=== PATIENT | female | born 1940 | race Caucasian/White ===

== ENCOUNTER → 2017-03-06 | Outpatient (CLI) | payer MEDICARE, OTHER ==
[~2017-03-06] MED LIST: REGADENOSON 0.4 MG/5 ML DISP.SYRIN. IV ONE
--- NOTE | 2017-03-06 15:54 | PCVCIMAG ---
APPROVED REPORT Exam: Nuclear Stress Test Indication: Dyspnea , Chest pain Patient Location: Out-Patient Stress Nurse: Emperatriz Malone RN, Leila Koch RN [place] Tech:Ada AdhikarihbunGEORGINAMT Ht: 5 ft 2 in Wt: 161 lbs BSA: 1.74 m2 HR: 61 bpm BP: 135/76 mmHg BMI: 29.4 Rhythm: Sinus Rhythm, RBBB Medical History Medical History: Smoking - Former Medications: Amlodipine, Lisinopril, Omeprazole, Simvastatin, HCTZ Allergies: No known drug allergies Cardiac Risk Factors: Age Pretest Chest Pain Characteristics: No chest pain Exercise History: Physically active NM EXAM: Myocardial Perfusion REST/STRESS Imaging Protocol: Rest Tc-99m/Stress Tc-99m 1 day Resting Data Rest SPECT myocardial perfusion imaging was performed in supine position 45 minutes following the intravenous injection of 10.5 mCi of Tc-99m Sestamibi. Time of rest injection: 0800 Date: 03/06/2017 Pharmacologic Stress Pharmacologic stress test was performed by injecting Regadenoson 0.4 mg IV push followed by the intravenous injection of 34.7 mCi of Tc-99m Sestamibi. Time of stress injection: 0900 Date: 03/06/2017 Gated Stress SPECT was performed 45 minutes after stress injection. The images were gated to evaluate regional wall motion and calculate left ventricular ejection fraction. Exercise Stress Administration Site: Left Hand Comments IV Dc'd by [facility] Study Quality Study: Good Study Data Post stress, the left ventricular ejection was 72%.. SSS: 0 SRS: 4 SDS: 0 TID = 1.17. Perfusion No evidence of stress induced ischemia or prior myocardial infarction. Wall Motion Normal left ventricular size and function with no regional wall motion abnormalities. Nuclear Conclusion No evidence of stress induced ischemia or prior myocardial infarction. Normal left ventricular size and function with no regional wall motion abnormalities. No prior study available for comparison. Interpreted by: Martin Moore MD Electronically Approved: 03/06/2017 15:23:59 Stress Test Details Stress Test: Pharmacologic stress was paired with low level exercise. Reason for pharmacologic stress test: physical limitation. HR Resting HR: 61 bpmMax Heart Rate (APMHR): 146 bpm Max HR Achieved: 96 bpmTarget HR (85% APMHR): 124 bpm % of APMHR: 65 Recovery HR: 78 bpm BP Resting BP: 135/76 mmHg Max BP: 152/70 mmHg Recovery BP: 161/73 mmHg ECG Resting ECG: Sinus Rhythm, RBBB Stress ECG: Sinus Rhythm, Paced Recovery ECG: Sinus Rhythm, NSSTT changes Clinical Reason for Termination: Completed protocol Stress Symptoms: Dyspnea, Headache Exercise duration: 4 min 00 sec Exercise capacity: 1.6 METs Symptoms resolved during recovery with caffeine. Stress ECG Conclusion ECG: Non-ischemic <Conclusion> ECG: Non-ischemic
== END | disposition home or self-care (01) ==
LOC: PCVCIMAG 07:55
PROVIDERS: ATTEND Nuclear Medicine Nuclear Cardiology
DX: I45.10 Unspecified right bundle-branch block (principal); R51 Headache; Z87.891 Personal history of nicotine dependence
CPT/HCPCS: 78452; 93017; A9500; J2785

== ENCOUNTER → 2017-03-13 | Outpatient (CLI) | payer MEDICARE, OTHER ==
--- NOTE | 2017-03-13 16:45 | PCVCIMAG ---
EXAM: BILATERAL SUPERFICIAL VENOUS DUPLEX INDICATION: Leg pain and swelling. FINDINGS: Right leg: No thrombus in the common femoral, main femoral, or popliteal veins. These veins are compressible. Right Great Saphenous Vein: At the saphenofemoral junction the diameter is 7.2 mm, in the mid thigh it is 3.9 mm, and in the calf it is 3.6 mm. There is significant venous insufficiency/reflux throughout. Venous insufficiency/reflux duration is 4.4 seconds. Right Small Saphenous Vein: At the saphenopopliteal junction the diameter is 3.0 mm, and in the calf it is 2.2 mm. There is not significant venous insufficiency/reflux throughout. Venous insufficiency/reflux duration is 0 seconds. There is not a cranial extension present. Left leg: No thrombus in the common femoral, main femoral, or popliteal veins. These veins are compressible. Left Great Saphenous Vein: At the saphenofemoral junction the diameter is 7.2 mm, in the mid thigh it is 4.0 mm, and in the calf it is 2.9 mm. There is not significant venous insufficiency/reflux throughout. Venous insufficiency/reflux duration is 0 seconds. Left Small Saphenous Vein: At the saphenopopliteal junction the diameter is 2.4 mm, and in the calf it is 2.4 mm. There is not significant venous insufficiency/reflux throughout. Venous insufficiency/reflux duration is 0 seconds. There is not a cranial extension present. IMPRESSION: Right Great Saphenous Vein: Significant venous insufficiency/reflux is present as noted above. Note is made however the vein is small in size. Right Small Saphenous Vein: No significant venous insufficiency/reflux is present as noted above. Left Great Saphenous Vein: No significant venous insufficiency/reflux is present as noted above. Left Small Saphenous Vein: No significant venous insufficiency/reflux is present as noted above. LOC:[id number]
--- NOTE | 2017-03-13 16:46 | PCVCIMAG ---
EXAM: BILATERAL LOWER EXTREMITY ARTERIAL DUPLEX INDICATION: Peripheral Arterial Disease. Leg pain. FINDINGS: Right Leg: Satisfactory arterial waveforms throughout the common/profunda/superficial femoral, popliteal, anterior tibial, peroneal, and posterior tibial arteries. No flow limiting stenosis seen. Left Leg: Satisfactory arterial waveforms throughout the common/profunda/superficial femoral, popliteal, anterior tibial, peroneal, and posterior tibial arteries. No flow limiting stenosis seen. IMPRESSION: No flow limiting stenosis in the right lower extremity. No flow limiting stenosis in the left lower extremity. LOC:[id number]
== END | disposition home or self-care (01) ==
LOC: PCVCIMAG 13:51
PROVIDERS: ATTEND Nuclear Medicine Nuclear Cardiology
DX: I87.2 Venous insufficiency (chronic) (peripheral) (principal); I73.9 Peripheral vascular disease, unspecified; I45.10 Unspecified right bundle-branch block; I44.1 Atrioventricular block, second degree
CPT/HCPCS: 93925; 93970; G0463